=== PATIENT | male | born 1955 | race Asian ===

== ENCOUNTER → 2021-03-13 | Day surgery (SDC) | payer OTHER ==
[2021-03-09 10:27] LABS: ANION GAP 15.5 mmol/L (8-16); CALCIUM 9.7 mg/dL (8.4-10.2); CREATININE, SERUM 1.06 mg/dL (0.72-1.25); POTASSIUM 4.5 mmol/L (3.5-5.1)
[~2021-03-13] MED LIST: ACETAMINOPHEN-1 EAC3 PO; ASPIRIN81 MG PO; BUPIVACAINE 0.25% 30ML SDV ONE; GLIMEPIRIDE2 MG PO; JARDIANCE25 MG; LIPITOR10 MG PO; METFORMIN HCL500 MG PO; MOBIC7.5 MG PO; MUPIROCIN 2% OINT 22 GM TUBE ONE; PANTOPRAZOLE SO40 MG PO; ZESTRIL10 MG PO
[2021-03-13 10:05] VITALS: BP 108/68
== END | disposition home or self-care (01) ==
LOC: OR 06:34
PROVIDERS: ATTEND Plastic Surgery
DX: M65.322 Trigger finger, left index finger (principal); E11.9 Type 2 diabetes mellitus without complications; I10 Essential (primary) hypertension; Z01.810 Encounter for preprocedural cardiovascular examination; Z01.812 Encounter for preprocedural laboratory examination; Z20.822 Contact with and (suspected) exposure to COVID-19; Z79.82 Long term (current) use of aspirin; Z79.84 Long term (current) use of oral hypoglycemic drugs
CPT/HCPCS: 26055; 36415 ×2; 80048; 82948; 93005; J0690; U0002